=== PATIENT | female | born 1935 | race Caucasian/White ===

== ENCOUNTER 2018-06-30 10:25 | Inpatient (IN) | payer MEDICARE, BC ==
[~2018-06-30] VITALS: Ht 165.1 cm; Wt 69.0 kg
--- NOTE | 2018-06-30 10:53 | NUR ---
CONTACT WITH PT, 83 YR OLD FEMALE HERE WITH C/O "I PASSED OUT ABOUT 7 SOMETHING THIS MORNING. I GOT UP, GOT MY COFFEE AND MY MUFFIN, WENT BACK INTO THE BEDROOM AND PASSED OUT. IT DIDNT LAST LONG, BUT IT WAS VERY FREIGHTENING" LIGHTHEADED AFTER EVENT TOOK BP 160/?60 OR 50. PULSE ONLY 39. PT PLACED ON MONITORS, SR WITH PVC'S PER MONITOR. AUTO BP AND PULSE OX IN PLACE. PTS SON AT BEDSIDE.
--- NOTE | 2018-06-30 11:05 | NUR ---
DR MONTENEGRO AT BEDSIDE TO EVAL PT.
[2018-06-30] MEDS ORDERED: METH2.5T PO (11:09)
[2018-06-30] MEDS ORDERED: AMLO-150 PO (11:09)
[2018-06-30] MEDS ORDERED: SPIR50TA4 PO (11:09)
[2018-06-30] MEDS ORDERED: PANT40TA5 PO (11:09)
[2018-06-30] MEDS ORDERED: METO25TA35 PO (11:09)
[2018-06-30] MEDS ORDERED: FOLI0.8T2 PO (11:09)
[2018-06-30] MEDS ORDERED: SODIUM CHLORIDE FLUSH 10ML SYR IVF ONE (11:30)
--- NOTE | 2018-06-30 11:34 | NUR ---
PT RETURN TO ROOM FROM CT.
[2018-06-30 11:58] LABS: BASOPHILS # (AUTO) 0.03 x10^3/uL (0-0.1); BASOPHILS % (AUTO) 0 % (0-1); EOSINOPHILS # (AUTO) 0.02 x10^3/uL (0-0.4); EOSINOPHILS % (AUTO) 0 % (1-7); LYMPHOCYTES # (AUTO) 1.18 x10^3/uL (1-3.4); LYMPHOCYTES % (AUTO) 10 % (22-44); MD NO; MEAN CORPUSCULAR HEMOGLOBIN 31.5 pg (27.0-34.8); MEAN CORPUSCULAR HGB CONC 33.7 g/dL (32.4-35.8); MEAN CORPUSCULAR VOLUME 93.6 fL (80-100); MEAN PLATELET VOLUME 7.6 fL (7.4-10.4); MONOCYTES % (AUTO) 2 % (2-9); NEUTROPHILS # (AUTO) 10.56 x10^3/uL (1.8-6.8); NEUTROPHILS % (AUTO) 87 % (42-75); PLATELET COUNT 334 x10^3/uL (130-400); RED CELL DISTRIBUTION WIDTH 13.9 % (9.6-15.2)
--- NOTE | 2018-06-30 12:01 | NUR ---
PT UP TO BR, DENIES DIZZINESS/LIGHTHEADEDNESS WITH AMBULATION. PT ABLE TO PROVIDE URINE SPECIMAN. PT PLACED BACK ON MONITORS. PT LAYING FLAT SHE CAN FOR ORTHOSTATIC V/S.
[2018-06-30 12:09] LABS: CHLORIDE 105 mmol/L (98-107)
[2018-06-30 12:18] LABS: MICROSCOPIC AUTO
[2018-06-30 12:19] LABS: CULTURE INDICATED? YES
[2018-06-30 12:23] LABS: ALANINE AMINOTRANSFERASE 17 U/L (12-78); ALKALINE PHOSPHATASE 69 U/L (45-117); ANION GAP 8 mmol/L (5-15); BILIRUBIN,TOTAL 0.9 mg/dL (0.2-1.0); CALCIUM 9.2 mg/dL (8.5-10.1); CREATININE 1.12 mg/dL (0.55-1.02); T4 (THYROXINE) 13.5 mcg/dL (4.8-13.9); TOTAL PROTEIN 7.3 g/dL (6.4-8.2); TROPONIN I < 0.015 ng/mL (0.000-0.045)
--- NOTE | 2018-06-30 13:32 | NUR ---
PT PROVIDED WITH PO FLUIDS. PT AWARE OF TO BE ADMITTED INPATIENT. NO C/O OFFERED. CONT IN TRIGEMINY RHYTHM VARIABLE WITH NS.
[2018-06-30] MEDS ORDERED: POTA8CAP PO (14:01)
--- NOTE | 2018-06-30 14:01 | NUR ---
REPORT CALLED TO IASSIC JACOB. POC DISCUSSED.
--- NOTE | 2018-06-30 14:58 | NUR ---
SHREYA JAMES. RECEIVED REPORT FROM LYNNETTE JAMES. PT BEING TRANSFERRED TO FLOOR AT THIS TIME, ALL BELONGINGS COLLECTED AND SENT TO FLOOR WITH PT, RM [id number]. ACCOMPANIED BY FAMILY. VSS. FALL PRECAUTIONS IN PLACE
[2018-06-30] MEDS ORDERED: CYCLOBENZAPRINE 10 MG TABLET PO PRN (15:00)
[2018-06-30] MEDS ORDERED: ENOXAPARIN 40 MG/0.4 ML SQ SCH (15:00)
[2018-06-30] MEDS ORDERED: ONDANSETRON 2MG/ML, 2ML IVPush PRN (15:00)
[2018-06-30] MEDS ORDERED: ACETAMINOPHEN 325 MG TABLET PO PRN (15:00)
[2018-06-30] MEDS ORDERED: ONDANSETRON ODT 4 MG PO PRN (15:00)
[2018-06-30] MEDS ORDERED: ENALAPRILAT 1.25 MG/ML, 2ML IVPush PRN (15:00)
[2018-06-30 15:27] VITALS: BP 117/67
[2018-06-30 15:28] VITALS: BP 122/65
[2018-06-30 15:29] VITALS: BP 106/70
[2018-06-30] MEDS: SODIUM CHLORIDE 0.9% 1,000 ML IV SCH ×2 (15:39→23:29)
[2018-06-30 16:36] LABS: HEMOGLOBIN A1C 6.2 % (4.2-6.3)
[2018-06-30 20:10] VITALS: BP 105/60
[2018-07-01] VITALS (7 sets, daily range): BP systolic 104–132; BP diastolic 54–82
[2018-07-01 05:54] LABS: BASOPHILS # (AUTO) 0.04 x10^3/uL (0-0.1); BASOPHILS % (AUTO) 0 % (0-1); EOSINOPHILS % (AUTO) 3 % (1-7); LYMPHOCYTES # (AUTO) 2.38 x10^3/uL (1-3.4); LYMPHOCYTES % (AUTO) 26 % (22-44); MD NO; MEAN CORPUSCULAR HEMOGLOBIN 31.4 pg (27.0-34.8); MEAN CORPUSCULAR HGB CONC 33.7 g/dL (32.4-35.8); MEAN CORPUSCULAR VOLUME 93.1 fL (80-100); MEAN PLATELET VOLUME 8.1 fL (7.4-10.4); MONOCYTES # (AUTO) 0.59 x10^3/uL (0.2-0.8); MONOCYTES % (AUTO) 7 % (2-9); NEUTROPHILS # (AUTO) 5.71 x10^3/uL (1.8-6.8); NEUTROPHILS % (AUTO) 63 % (42-75); PLATELET COUNT 280 x10^3/uL (130-400); RED CELL DISTRIBUTION WIDTH 13.9 % (9.6-15.2)
[2018-07-01 05:56] LABS: CHLORIDE 109 mmol/L (98-107)
[2018-07-01] MEDS ORDERED: PANTOPROZOLE 40MG TABLET PO SCH (06:00)
[2018-07-01 06:08] LABS: ANION GAP 8 mmol/L (5-15); CALCIUM 8.5 mg/dL (8.5-10.1); CREATININE 0.99 mg/dL (0.55-1.02)
[2018-07-01] MEDS: SODIUM CHLORIDE 0.9% 1,000 ML IV SCH (06:22)
[2018-07-01] MEDS ORDERED: AMLODIPINE 5 MG TABLET PO SCH ×2 (09:00→21:00)
[2018-07-01] MEDS ORDERED: SENNA/DOCUSATE TABLET PO SCH (09:00)
[2018-07-01] MEDS ORDERED: SPIRONOLACTONE 50 MG TABLET PO SCH (09:00)
== END 2018-07-01 15:20 | disposition home or self-care (01) | DRG 310 ==
LOC: ED 12:14 → EDIP 13:34 → 4WST 14:59 → DCLOUNGE 07-01 14:23
PROVIDERS: ADMIT Family Medicine; ATTEND Family Medicine
DX: I49.9 Cardiac arrhythmia, unspecified (principal); R00.8 Other abnormalities of heart beat; R55 Syncope and collapse; I10 Essential (primary) hypertension; K21.9 Gastro-esophageal reflux disease without esophagitis; R00.2 Palpitations; I49.3 Ventricular premature depolarization; M06.9 Rheumatoid arthritis, unspecified; Z88.6 Allergy status to analgesic agent
CPT/HCPCS: 36415; 70450; 71045; 80048; 80053; 81001; 83036; 83735; 84436; 84443; 84484; 85025; 87086; 93005; 93306; G0378; J1650; J7030

== ENCOUNTER 2018-07-04 08:09 | Emergency (ER) | payer MEDICARE, BC ==
[~2018-07-04] VITALS: Ht 165.1 cm; Wt 66.9 kg
[~2018-07-04 08:09] MED LIST: AMLO-150 PO; FOLI0.8T2 PO; METH2.5T PO; METO25TA35 PO; PANT40TA5 PO; POTA8CAP PO; SPIR50TA4 PO
--- NOTE | 2018-07-04 08:41 | NUR ---
PATIENT TAKEN TO ROOM 3. PATIENT WALKED TO ROOM, OFFERED WHEELCHAIR AND SHE DECLINES. STEADY GAIT. PATIENT STATES THAT SHE WAS DISCHARGED LAST WEEK FOR THE SAME PAIN. CHEST PAIN NEVER WENT AWAY
[2018-07-04] MEDS ORDERED: MAALOX/HYOSCYAMINE/LIDOCAINE 45 ML BTL PO ONE (09:30)
[2018-07-04] MEDS ORDERED: MAALOX/HYOSCYAMINE/LIDOCAINE 45 ML BTL ONE (09:30)
[2018-07-04 09:42] LABS: BASOPHILS # (AUTO) 0.02 x10^3/uL (0-0.1); BASOPHILS % (AUTO) 0 % (0-1); EOSINOPHILS # (AUTO) 0.09 x10^3/uL (0-0.4); EOSINOPHILS % (AUTO) 1 % (1-7); LYMPHOCYTES # (AUTO) 1.07 x10^3/uL (1-3.4); LYMPHOCYTES % (AUTO) 12 % (22-44); MD NO; MEAN CORPUSCULAR HEMOGLOBIN 30.9 pg (27.0-34.8); MEAN CORPUSCULAR HGB CONC 33.4 g/dL (32.4-35.8); MEAN CORPUSCULAR VOLUME 92.6 fL (80-100); MEAN PLATELET VOLUME 8.1 fL (7.4-10.4); MONOCYTES # (AUTO) 0.54 x10^3/uL (0.2-0.8); MONOCYTES % (AUTO) 6 % (2-9); NEUTROPHILS % (AUTO) 81 % (42-75); PLATELET COUNT 293 x10^3/uL (130-400); RED BLOOD COUNT 4.91 x10^6/uL (3.82-5.3); RED CELL DISTRIBUTION WIDTH 13.5 % (9.6-15.2)
[2018-07-04 09:50] LABS: ALANINE AMINOTRANSFERASE 18 U/L (12-78); ALBUMIN 4.3 g/dL (3.4-5.0); ANION GAP 6 mmol/L (5-15); CALCIUM 9.3 mg/dL (8.5-10.1); CHLORIDE 108 mmol/L (98-107)
[2018-07-04 09:54] LABS: ALKALINE PHOSPHATASE 62 U/L (45-117); BILIRUBIN,TOTAL 1.1 mg/dL (0.2-1.0); CREATININE 1.03 mg/dL (0.55-1.02); TOTAL PROTEIN 7.3 g/dL (6.4-8.2); TROPONIN I < 0.015 ng/mL (0.000-0.045)
--- NOTE | 2018-07-04 10:10 | NUR ---
SOME RELIEF WITH GI COCKTAIL
--- NOTE | 2018-07-04 10:11 | NUR ---
PATIENT PLACED IN RECHECK
[2018-07-04 11:03] VITALS: BP 105/71
== END 2018-07-04 11:17 | disposition home or self-care (01) ==
LOC: ED 09:41
DX: R10.13 Epigastric pain (principal); R07.89 Other chest pain; M54.5 Low back pain; M54.6 Pain in thoracic spine; I10 Essential (primary) hypertension; K21.9 Gastro-esophageal reflux disease without esophagitis
CPT/HCPCS: 36415; 71045; 80053; 84484; 85025; 93005; 99284

== ENCOUNTER 2018-07-10 08:46 | Emergency (ER) | payer MEDICARE, BC ==
[~2018-07-10] VITALS: Ht 165.1 cm; Wt 66.5 kg
[2018-07-10] MEDS ORDERED: SUCR1TAB PO (09:23)
[2018-07-10] MEDS ORDERED: PANT40TA5 PO (09:23)
--- NOTE | 2018-07-10 09:23 | NUR ---
PT TO RM 21 WITH MD EVALUATING PT
[2018-07-10] MEDS ORDERED: SODIUM CHLORIDE FLUSH 10ML SYR IVF ONE (09:30)
[2018-07-10 09:55] LABS: BASOPHILS # (AUTO) 0.04 x10^3/uL (0-0.1); BASOPHILS % (AUTO) 1 % (0-1); EOSINOPHILS # (AUTO) 0.08 x10^3/uL (0-0.4); EOSINOPHILS % (AUTO) 1 % (1-7); LYMPHOCYTES % (AUTO) 18 % (22-44); MD NO; MEAN CORPUSCULAR HEMOGLOBIN 31.5 pg (27.0-34.8); MEAN CORPUSCULAR HGB CONC 33.9 g/dL (32.4-35.8); MEAN CORPUSCULAR VOLUME 92.8 fL (80-100); MEAN PLATELET VOLUME 8.7 fL (7.4-10.4); MONOCYTES # (AUTO) 0.46 x10^3/uL (0.2-0.8); MONOCYTES % (AUTO) 6 % (2-9); NEUTROPHILS # (AUTO) 5.38 x10^3/uL (1.8-6.8); NEUTROPHILS % (AUTO) 74 % (42-75); PLATELET COUNT 286 x10^3/uL (130-400); RED BLOOD COUNT 4.99 x10^6/uL (3.82-5.3); RED CELL DISTRIBUTION WIDTH 13.7 % (9.6-15.2)
--- NOTE | 2018-07-10 10:28 | NUR ---
This RN chaperoned Dr. Block while he performed rectal exam on pt. Pt tolerated well.
[2018-07-10 10:38] LABS: INTERNATIONAL NORMALIZED RATIO 0.99 (0.93-1.1); PROTHROMBIN TIME 10.5 Seconds (9.6-11.5)
[2018-07-10 10:41] LABS: ALANINE AMINOTRANSFERASE 15 U/L (12-78); ANION GAP 9 mmol/L (5-15); CALCIUM 9.4 mg/dL (8.5-10.1); CHLORIDE 106 mmol/L (98-107); CREATININE 1.08 mg/dL (0.55-1.02)
[2018-07-10 10:43] LABS: ALKALINE PHOSPHATASE 60 U/L (45-117); BILIRUBIN,TOTAL 1.1 mg/dL (0.2-1.0)
--- NOTE | 2018-07-10 11:30 | NUR ---
after ambulating to bathroom, returned to room. discussing results with pt and discharge to be give
[2018-07-10 11:38] VITALS: BP 138/69
== END 2018-07-10 11:41 | disposition home or self-care (01) ==
LOC: ED 09:31
DX: R10.13 Epigastric pain (principal); I10 Essential (primary) hypertension
CPT/HCPCS: 36415; 71045; 80053; 83690; 85025; 85610; 93005; 99284

== ENCOUNTER → 2018-08-02 | Outpatient (CLI) | payer MEDICARE, BC ==
[~2018-08-02] MED LIST changes: +SUCR1TAB PO
== END | disposition home or self-care (01) ==
LOC: CFH 07:00
PROVIDERS: ATTEND Internal Medicine Gastroenterology
DX: K44.9 Diaphragmatic hernia without obstruction or gangrene (principal); K21.9 Gastro-esophageal reflux disease without esophagitis; R07.9 Chest pain, unspecified; K90.89 Other intestinal malabsorption; K22.2 Esophageal obstruction; R94.31 Abnormal electrocardiogram [ECG] [EKG]; I10 Essential (primary) hypertension; E78.5 Hyperlipidemia, unspecified; E89.41 Symptomatic postprocedural ovarian failure; K57.90 Diverticulosis of intestine, part unspecified, without perforation or abscess without bleeding; M19.90 Unspecified osteoarthritis, unspecified site; R55 Syncope and collapse; Z79.899 Other long term (current) drug therapy; Z88.8 Allergy status to other drugs, medicaments and biological substances
CPT/HCPCS: 74220

== ENCOUNTER 2019-01-20 08:54 | Outpatient (CLI) | payer MEDICARE, BC ==
[~2019-01-20 08:54] MED LIST changes: -POTA8CAP PO; +POTA8CAP20 PO
[2019-01-20] MEDS ORDERED: SINCALIDE (KINEVAC) 5 MCG ONE (12:23)
[2019-01-23] MEDS ORDERED: FOLIC ACID PO (10:47)
[2019-01-23] MEDS ORDERED: VITAMIN B12 PO (10:47)
[2019-01-23] MEDS ORDERED: LOSA25TA25 PO (10:47)
[2019-01-23] MEDS ORDERED: CHOL10003 PO (10:47)
[2019-01-23] MEDS ORDERED: RANI300T PO (10:47)
[2019-01-23] MEDS ORDERED: OMEP40CA6 PO (10:47)
[2019-01-23] MEDS ORDERED: METO25TA35 PO (10:47)
[2019-02-02] MEDS ORDERED: HYDR15SO3 PO (10:36)
== END 2019-01-20 23:59 | disposition home or self-care (01) ==
LOC: PETCFH 08:54
PROVIDERS: ATTEND Nurse Practitioner Family
DX: R07.89 Other chest pain (principal); K44.9 Diaphragmatic hernia without obstruction or gangrene; R10.13 Epigastric pain; R63.4 Abnormal weight loss; Z88.8 Allergy status to other drugs, medicaments and biological substances
CPT/HCPCS: 78227; A9537; J2805

== ENCOUNTER 2019-02-01 07:07 | Observation (INO) | payer MEDICARE, BC ==
[~2019-02-01] VITALS: Ht 165.1 cm; Wt 69.5 kg
[2019-02-02 13:37] VITALS: BP 123/68
== END 2019-02-02 16:22 | disposition home or self-care (01) ==
LOC: OUT 07:07 → ORIP 11:45 → 4NOR 13:01 → DCLOUNGE 02-02 16:08
PROVIDERS: ADMIT Thoracic Surgery (Cardiothoracic Vascular Surgery); ATTEND Thoracic Surgery (Cardiothoracic Vascular Surgery)
DX: K44.9 Diaphragmatic hernia without obstruction or gangrene (principal); K21.9 Gastro-esophageal reflux disease without esophagitis; R13.10 Dysphagia, unspecified; K56.609 Unspecified intestinal obstruction, unspecified as to partial versus complete obstruction; I10 Essential (primary) hypertension; E78.00 Pure hypercholesterolemia, unspecified; Z90.710 Acquired absence of both cervix and uterus; Z90.49 Acquired absence of other specified parts of digestive tract; Z79.899 Other long term (current) drug therapy; Z88.8 Allergy status to other drugs, medicaments and biological substances
CPT/HCPCS: 43282; 88307; 88341; 88342; 96372; 96374; 96375; 96376; G0378; J0330; J0690; J1100; J1200; J1650; J1885; J2250; J2405; J2704; J3010; J3490; J7120; Q4116

== ENCOUNTER 2019-05-18 08:10 | Emergency (ER) | payer MEDICARE, BC ==
[~2019-05-18] VITALS: Ht 165.1 cm; Wt 61.2 kg
[~2019-05-18 08:10] MED LIST changes: +CHOL10003 PO; +FOLIC ACID PO; +HYDR15SO3 PO; +LOSA25TA25 PO; +OMEP40CA42 PO; +RANI300T PO; +VITAMIN B12 PO
[2019-05-18] MEDS ORDERED: LOSA100T14 PO (08:50)
[2019-05-18] MEDS ORDERED: OMEP-110 PO (08:50)
[2019-05-18] MEDS ORDERED: METH2.5T PO (08:50)
--- NOTE | 2019-05-18 08:52 | NUR ---
Patient brought from triage ambulatory with steady gait. Reports having xhest tigthness and feeling nausea this morning. Took her blood pressure and it was found to be elevated. [place] like her heart was "pounding". AAO with clear speech. Son at bedside
[2019-05-18 09:54] LABS: BASOPHILS # (AUTO) 0.03 x10^3/uL (0-0.1); BASOPHILS % (AUTO) 0 % (0-1); EOSINOPHILS # (AUTO) 0.11 x10^3/uL (0-0.4); EOSINOPHILS % (AUTO) 2 % (1-7); LYMPHOCYTES # (AUTO) 0.99 x10^3/uL (1-3.4); LYMPHOCYTES % (AUTO) 14 % (22-44); MD NO; MEAN CORPUSCULAR HEMOGLOBIN 29.4 pg (27.0-34.8); MEAN CORPUSCULAR HGB CONC 32.7 g/dL (32.4-35.8); MEAN PLATELET VOLUME 7.3 fL (7.4-10.4); MONOCYTES # (AUTO) 0.47 x10^3/uL (0.2-0.8); MONOCYTES % (AUTO) 7 % (2-9); NEUTROPHILS # (AUTO) 5.29 x10^3/uL (1.8-6.8); NEUTROPHILS % (AUTO) 77 % (42-75); PLATELET COUNT 259 x10^3/uL (130-400); RED BLOOD COUNT 4.81 x10^6/uL (3.82-5.3); RED CELL DISTRIBUTION WIDTH 13.4 % (9.6-15.2)
[2019-05-18 10:07] LABS: ALANINE AMINOTRANSFERASE 15 U/L (12-78); ALBUMIN 3.5 g/dL (3.4-5.0); ANION GAP 7 mmol/L (5-15); CALCIUM 8.8 mg/dL (8.5-10.1); CHLORIDE 111 mmol/L (98-107); CREATININE 1.01 mg/dL (0.55-1.02)
[2019-05-18 10:12] LABS: ALKALINE PHOSPHATASE 80 U/L (45-117); BILIRUBIN,TOTAL 0.8 mg/dL (0.2-1.0); TOTAL PROTEIN 6.7 g/dL (6.4-8.2); TROPONIN I 0.036 ng/mL (0.000-0.045)
--- NOTE | 2019-05-18 10:56 | NUR ---
Patient to CT with Tech
[2019-05-18] MEDS ORDERED: OMNIPAQUE 350 MG/ML, 100ML BOTTLE ONE (11:30)
--- NOTE | 2019-05-18 11:43 | NUR ---
Patient resting in bed, NAD noted. Pending CTA results.
[2019-05-18] MEDS ORDERED: APIXABAN 5 MG TABLET ONE (12:43)
[2019-05-18 12:46] VITALS: BP 170/86
[2019-05-18] MEDS ORDERED: APIXABAN 5 MG TABLET PO ONE (13:00)
--- NOTE | 2019-05-18 13:04 | NUR ---
Patient discharged home with son. discharge instructions provided all questions and concerns addressed. IV dc'd cath intact. All belongings with patient. Denied CP or tigthness. Ambulatory with steady gait
== END 2019-05-18 13:07 | disposition home or self-care (01) ==
LOC: ED 09:46
DX: I82.521 Chronic embolism and thrombosis of right iliac vein (principal); R11.0 Nausea; R07.89 Other chest pain; I10 Essential (primary) hypertension; K21.9 Gastro-esophageal reflux disease without esophagitis
CPT/HCPCS: 36415; 71045; 71275; 80053; 83690; 84484; 85025; 93005; 93971; 99284; Q9967